=== PATIENT | male | born 1975 | race Two or more races ===

== ENCOUNTER 2021-07-25 05:07 | Emergency (ER) | payer SELFPAY ==
[~2021-07-25] VITALS: Ht 157.5 cm; Wt 75.0 kg
[2021-07-25] MEDS ORDERED: KETOROLAC TROMETHAMINE 30 MG/ML VIAL IM ONE (06:30)
[2021-07-25 06:39] VITALS: BP 154/99
== END 2021-07-25 07:59 | disposition home or self-care (01) ==
LOC: EMS 05:08
DX: M25.562 Pain in left knee (principal); F17.210 Nicotine dependence, cigarettes, uncomplicated
CPT/HCPCS: 73562; 96372; 99283; J1885